=== PATIENT | female | born 1935 | race Caucasian/White ===

== ENCOUNTER 2019-12-02 06:26 | Emergency (ER) | payer MEDICARE ==
[~2019-12-02] VITALS: Ht 157.5 cm; Wt 59.0 kg
--- NOTE | 2019-12-02 06:29 | NUR ---
Patient to ER bed 2 to gown for evaluation. Side rails up. Report given to FABIANO LAM.
--- NOTE | 2019-12-02 06:29 | NUR ---
Patient BIB BLS alert and oriented x4 from home after a mechanical fall in her kitchen this morning. Patient reports she turned around and fell down flat on her back and injured her left hip. Patient states she hit her head on the floor but denies loss of consciousness. Patient states she lost her balance prior to the fall and denies dizziness. Patient left leg appear to be shortened and rotated outward. Patient appears to have two skin tears on her right and left forearms. Patient rates her pain a 10 out of 10. Patients has a hx of skin cancer, congestive heart failure, and low blood pressure. Patient does not have any other medical complaints at this time. Will continue to monitor.
[2019-12-02 06:30] VITALS: BP_SYST 110
--- NOTE | 2019-12-02 07:10 | NUR ---
# 20 gauge angiocath placed to R forearm. Use of asceptic technique. Opsite placed over site. Blood return noted. Blood for lab drawn from site. Flushed with 10 cc of normal saline. No evidence of infiltration noted. Patient tolerated well.
--- NOTE | 2019-12-02 07:12 | NUR ---
ER Dr. Silva at bedside examining patient.
[2019-12-02 07:22] LABS: BASOPHILS # (AUTO) 0.1 K/uL (0.0-0.2); BASOPHILS % (AUTO) 1.2 % (0.0-2.0); EOSINOPHILS # (AUTO) 0.2 K/uL (0.0-0.4); EOSINOPHILS % (AUTO) 3.4 % (0.0-4.0); HEMATOCRIT 33.3 % (36-48); HEMOGLOBIN 10.4 g/dL (12.0-16.0); LYMPHOCYTES # (AUTO) 1.5 K/uL (1.0-5.5); LYMPHOCYTES % (AUTO) 20.8 % (20.5-51.5); MEAN CORPUSCULAR HEMOGLOBIN 28 pg (27-31); MEAN CORPUSCULAR HGB CONC 31 % (32-36); MEAN CORPUSCULAR VOLUME 91 fL (79.0-98.0); MONOCYTES # (AUTO) 0.8 K/uL (0.0-1.0); MONOCYTES % (AUTO) 11.3 % (1.7-9.3); NEUTROPHILS # (AUTO) 4.6 K/uL (1.8-7.7); NEUTROPHILS % (AUTO) 63.3 % (40.0-70.0); PLATELET COUNT (AUTO) 232 K/uL (130-430); RED BLOOD CELL COUNT(AUTO) 3.66 MIL/uL (4.2-6.2); RED CELL DISTRIBUTION WIDTH 26.4 % (9.0-15.0); WHITE BLOOD COUNT (AUTO) 7.2 K/uL (4.8-10.8)
--- NOTE | 2019-12-02 07:24 | NUR ---
Report given to CAROLE Barcenas for continuation of care.
[2019-12-02] MEDS ORDERED: ONDANSETRON HCL 4 MG/2 ML VIAL IVP ONE (07:30)
[2019-12-02] MEDS ORDERED: MORPHINE 4 MG/ML INJ. SYRINGE IVP ONE (07:30)
--- NOTE | 2019-12-02 07:30 | NUR ---
report received from Genna LAM. Pt is awake and alert. PT is s/p fall. Deformity to the LLE observed. LLE is shortened and rotated outward. Pt has two skin tears to BUE extremities. Medicated w/ Morphine and Zofran IVP. Will continue to monitor.
[2019-12-02 07:42] LABS: INR 1.7 (0.8-1.2); PROTHROMBIN TIME 16.9 SECS (9.5-12.5)
--- NOTE | 2019-12-02 07:52 | NUR ---
Patient transported to radiology via gurney, accompanied by loader technician.
[2019-12-02 07:56] LABS: ANION GAP 12 (5-15); CALCIUM 8.6 mg/dL (8.4-11.0); CHLORIDE 99 mmol/L (98-107); CREATININE 1.07 mg/dL (0.55-1.30); GLUCOSE 126 mg/dL (70-99); SODIUM SERUM 133 mmol/L (136-145); UREA NITROGEN, BLOOD 29 mg/dL (8-21)
[2019-12-02 08:01] LABS: ALANINE AMINOTRANSFERASE 26 U/L (12-78); ALBUMIN 3.4 g/dL (3.4-4.8); ASPARTATE AMINOTRANSFERASE 32 U/L (10-37); TOTAL BILIRUBIN 0.7 mg/dL (0.0-1.0)
[2019-12-02 08:04] LABS: POTASSIUM 4.1 mmol/L (3.5-5.1)
--- NOTE | 2019-12-02 08:20 | NUR ---
pt returned w/ CT scan
--- NOTE | 2019-12-02 08:50 | NUR ---
Belongings list completed
--- NOTE | 2019-12-02 10:28 | NUR ---
Pt being transfered to [facility] under the care of Dr. Hunt. Report called to CAROLE Starkey in the ER.
--- NOTE | 2019-12-02 11:30 | NUR ---
Patient to be transferred to [facility]. Is being transferred due to higher level of care. Receiving facility has accepting physician and available space. ER physician has signed transfer form. Patient or responsible democrat has agreed to transfer and signed form. Patient belongings inventoried and will be sent with patient. Copy of nursing notes, lab reports, EKG, Physicians Orders and X-rays to be sent with patient. Report called to CAROLE Starkey at receiving facility. Receiving physician is [place]. [facility] has been called for transfer.
[2019-12-02 11:33] VITALS: BP_SYST 114
== END 2019-12-02 11:30 | disposition short-term general hospital (02) ==
LOC: SED 06:26
DX: S00.03XA Contusion of scalp, initial encounter (principal); M25.552 Pain in left hip; W01.198A Fall on same level from slipping, tripping and stumbling with subsequent striking against other object, initial encounter; Y93.89 Activity, other specified; Y92.090 Kitchen in other non-institutional residence as the place of occurrence of the external cause; Y99.8 Other external cause status
CPT/HCPCS: 36415; 70450; 71045; 72125; 72192; 80053; 85025; 85610; 85730; 86886; 86900; 86901; 93005; 96374; 96375; 99285; J2270; J2405